=== PATIENT | female | born 1985 | race Caucasian/White ===

== ENCOUNTER 2018-09-05 17:39 | Emergency (ER) | payer BC, OTHER ==
[2018-09-05 17:48] VITALS: BMI 28.3
[2018-09-05] MEDS ORDERED: METOCLOPRAMIDE HCL INJECTION 10 MG/2 ML VIAL IVPUSH ONE (17:49)
[2018-09-05] MEDS ORDERED: SODIUM CHLORIDE 1,000 ML IV ONE (17:49)
--- NOTE | 2018-09-05 17:55 | PDOC ---
History of Present Illness - General Chief Complaint: Migraine Headache Stated Complaint: MIGRAINE HEADACHE Time Seen by Provider: 09/05/18 17:40 History Source: Patient Exam Limitations: No Limitations - History of Present Illness Initial Comments: 09/05/18 17:50 32y F hx of migraines (on daily nadolol, and takes relpax for breakthrough pain ) presents with [facility]. Pt notes her migraines have been relatively well controlled, (needs to gake relpax approx 1 x monthly) - however the past week, she has had 3 migraine headaches, which resolved prior to using the triptan - however around 2am, hr headache came back as a R sided pounding associated with photophobia/phonophobia, nausea/vomiting consistent with he rmigranes - she tookher relpex lastnight and again this afternoon without significant improvement. pt denies any blurry vision, double vision, numbness/tingling/ ewakness, cp, sob, fever/chills, abd pain, dairrhea, dysuria. Neurologist: Dr. Munoz Past History - Past Medical History Allergies/Adverse Reactions: Allergies Allergy/AdvReac Type Severity Reaction Status Date / Time cefaclor [From [facility]] Allergy Intermediate Rash Verified 09/05/18 17:41 Penicillins Allergy Intermediate Rash Verified 09/05/18 17:41 Home Medications: Ambulatory Orders Nadolol 40 mg PO HS 12/11/14 Norethindrone-E.estradiol-Iron [Minastrin 24 Fe Chewable Tab] 1 each PO DAILY Alprazolam [Xanax] 0.5 mg PO PRN 09/05/18 COPD: No Kidney Stones: Yes Other medical history: MIGRAINE - Immunization History Immunization Up to Date: Yes - Suicide/Smoking/Psychosocial Hx Smoking Status: Yes Smoking History: Current every day smoker Have you smoked in the past 12 months: No Number of Cigarettes Smoked Daily: 2 Information on smoking cessation initiated: No 'Breaking Loose' booklet given: 12/11/14 Hx Alcohol Use: Yes (SOCIAL) Drug/Substance Use Hx: No Substance Use Type: None Review of Systems - Review of Systems Able to Perform ROS?: Yes Comments:: 09/05/18 17:55 Constitutional - no reported Fever, Chills, HEENT: no reported vision changes, sore throat Respiratory: no reported cough, sob, hemoptysis Cardiac: no reported chest pain, palpitations, light headedness, leg swelling Abd/GI: no reported abd pain, nausea, vomiting, blood per rectum, melena, diarrhea : no reported dysuria, frequency, discharge Musculskelatal - no reported back pain, joint swelling skin - no reported bruising, erythema, rash neurological: +headache, no reported numbness, focal weakness, tingling, ataxia , hematologic: no reported easy bruising, easy bleeding *Physical Exam - Vital Signs Last Vital Signs Temp Pulse Resp BP Pulse Ox 98.4 F 52 L 16 117/66 100 09/05/18 17:39 09/05/18 17:39 09/05/18 17:39 09/05/18 17:39 09/05/18 17:39 - Physical Exam Comments: 09/05/18 17:55 GENERAL: The patient is awake, alert, and fully oriented, Nontoxic - in no acute distress. HEAD: Normocephalic, atraumatic. EYES: extraocular movements intact, sclera anicteric, conjunctiva clear. ENT: Normal voice, Moist mucous membranes. NECK: Normal range of motion, supple LUNGS: Breath sounds equal, clear to auscultation bilaterally. No wheezes, no rhonchi, no rales. HEART: Regular rate and rhythm, normal S1 and S2 without murmur, rub or gallop. ABDOMEN: Soft, nontender, normoactive bowel sounds. No guarding, no rebound. . No CVA tenderness EXTREMITIES: Normal range of motion, no edema. No clubbing or cyanosis. No cords, erythema, or tenderness. NEUROLOGICAL: No facial assymetry, Normal speech, motor exam grossly symmetric and intact, sensation symmetric in upper and lower PSYCH: Normal mood, normal affect. SKIN: Warm, Dry, normal turgor, Medical Decision Making - Medical Decision Making 09/05/18 17:56 Suspect migraine headaches will give Reglan, Toradol, fluids for hydration UHCG negative no red flags/neuro sx or findings 09/05/18 18:42 pt feelnig significantly improved on reasesssment with complete resolution of her headache will dc with supportive care I discussed the physical exam findings, ancillary test results and final diagnoses with the patient. I answered all of the patient's questions. The patient was satisfied with the care received and felt comfortable with the discharge plan and treatment plan. The patient will call their primary care physician within 24 hours to arrange follow-up and will return to the Emergency Department with any new, persistent or worsening symptoms. *DC/Admit/Observation/Transfer Diagnosis at time of Disposition: Migraine Qualifiers: Migraine type: with aura Status migrainosus presence: without status migrainosus Intractability: not intractable Qualified Code(s): G43.109 - Migraine with aura, not intractable, without status migrainosus - Discharge Dispostion Disposition: HOME Condition at time of disposition: Improved Decision to Admit order: No - Referrals Referrals: Sami Munoz MD [Staff Physician] - - Patient Instructions Printed Discharge Instructions: DI for Migraine Additional Instructions: Return to the emergency department immediately with ANY new, persistent or worsening symptoms including worsening headache, vision changes, numbness/ tingling/weakness, persistent nausea and vomiting or any other concerns. Make sure you are getting adaqute sleep and hydration. You MUST call and follow up with your doctor n 4-5 days for further evaluation of your symptoms. Your emergency department visit is not complete without a followup with your doctor for reevaluation. Results were discussed with you. Please make sure your doctor reviews the results of your emergency evaluation. - Post Discharge Activity
[2018-09-05] MEDS ORDERED: KETOROLAC TROMETHAMINE 30 MG/1 ML VIAL IVPUSH ONE (17:56)
[2018-09-05] MEDS ORDERED: KETOROLAC TROMETHAMINE 30 MG/1 ML VIAL ONE (18:06)
[2018-09-05] MEDS ORDERED: METOCLOPRAMIDE HCL INJECTION 10 MG/2 ML VIAL ONE (18:07)
[2018-09-05 18:55] VITALS: BP 102/63; PULSE 79; TEMP 97.9
== END 2018-09-05 18:57 | disposition home or self-care (01) ==
LOC: FER 17:39
PROC: 3E0333Z Introduction of Anti-inflammatory into Peripheral Vein, Percutaneous Approach (ICD-10-PCS; principal; 2018-09-05)
PROC: 3E033GC Introduction of Other Therapeutic Substance into Peripheral Vein, Percutaneous Approach (ICD-10-PCS; 2018-09-05)
PROC: 3E0337Z Introduction of Electrolytic and Water Balance Substance into Peripheral Vein, Percutaneous Approach (ICD-10-PCS; 2018-09-05)
DX: G43.109 Migraine with aura, not intractable, without status migrainosus (principal); F17.210 Nicotine dependence, cigarettes, uncomplicated
CPT/HCPCS: 81025; 99281-25; J7030

== ENCOUNTER 2019-01-20 16:54 | Emergency (ER) | payer BC ==
[2019-01-20 17:04] VITALS: BP 114/72; PULSE 66; TEMP 97.8; BMI 29.7
[2019-01-20] MEDS ORDERED: METOCLOPRAMIDE HCL INJECTION 10 MG/2 ML VIAL IVPUSH ONE (17:21)
[2019-01-20] MEDS ORDERED: SODIUM CHLORIDE 1,000 ML IV ONE (17:21)
[2019-01-20] MEDS ORDERED: KETOROLAC TROMETHAMINE 30 MG/1 ML VIAL IVPUSH ONE (17:21)
[2019-01-20] MEDS ORDERED: METOCLOPRAMIDE HCL INJECTION 10 MG/2 ML VIAL ONE (17:29)
[2019-01-20] MEDS ORDERED: KETOROLAC TROMETHAMINE 30 MG/1 ML VIAL ONE (17:29)
--- NOTE | 2019-01-20 18:11 | PDOC ---
Documentation entered by Lucinda Buchanan SCRIBE, acting as scribe for Adolph Foster MD. Adolph Foster MD: This documentation has been prepared by the Chanel fitzgerald Adrianna, SCRIBE, under my direction and personally reviewed by me in its entirety. I confirm that the documentation accurately reflects all work, treatment, procedures, and medical decision making performed by me. History of Present Illness - General Chief Complaint: Headache Stated Complaint: MIGRAINE HEADACHE Time Seen by Provider: 01/20/19 17:08 History Source: Patient Exam Limitations: No Limitations - History of Present Illness Initial Comments: The patient is a 33 year old female, with a significant PMH of migraines (on daily nadolol, and takes relpax for breakthrough pain), kidney stones, and anxiety, who presents to the ED for evaluation of migraine for one day. Patient notes her migraines have been typically well controlled (seen in the ER once a year), but they have become progressively worse recently (seen 2 times in the past 3 months). Patient notes that she began experiencing a migraine earlier this morning, that has progressively worsened as the day progressed. Patient describes her migraine as pounding, constant, and felt diffusely. She endorses associated photophobia, dizziness, nausea, NBNB vomit, and dehydration. Patient notes she was asymptomatic yesterday, but has returned to work that causes her stress especially yesterday. She took her relpax without significant improvement. Denies blurry vision, double vision, numbness, tingling, weakness, chest pain, SOB, fever, chills, neck pain or stiffness, abdominal pain, diarrhea, or dysuria. Allergies: Cefaclor, penicillins Surgical History: None reported Social History: Current smoker (2 cigarettes per day). Social EtOH use. Denies illicit drug use. PCP: Dr. Gee Neurologist: Dr. Munoz Past History - Past Medical History Allergies/Adverse Reactions: Allergies Allergy/AdvReac Type Severity Reaction Status Date / Time [place] [[place] [facility] Allergy Intermediate Rash Verified 01/20/19 16:55 Penicillins Allergy Intermediate Rash Verified 01/20/19 16:55 Home Medications: Ambulatory Orders Nadolol 30 mg PO HS 12/11/14 Norethindrone-E.estradiol-Iron [Minastrin 24 Fe Chewable Tab] 1 each PO DAILY 04 /29/16 Alprazolam [Xanax] 0.5 mg PO PRN 09/05/18 Eletriptan Hydrobromide [Relpax -] 40 mg PO ASDIR 01/20/19 COPD: No Kidney Stones: Yes Psychiatric Problems: Yes (ANXIETY) Other medical history: MIGRAINE HEADACHES - Immunization History Immunization Up to Date: Yes - Suicide/Smoking/Psychosocial Hx Smoking Status: Yes Smoking History: Current some day smoker Have you smoked in the past 12 months: Yes Number of Cigarettes Smoked Daily: 2 Information on smoking cessation initiated: Yes 'Breaking Loose' booklet given: 12/11/14 Hx Alcohol Use: (social) Drug/Substance Use Hx: No Substance Use Type: None Review of Systems - Review of Systems Able to Perform ROS?: Yes Comments:: Constitutional - +dehydrated. Pt denies Fever, Chills, weakness, HEENT: denies vision changes, sore throat Respiratory: Denies cough, sob, hemoptysis Cardiac: denies chest pain, palpitations, light headedness, leg swelling Abd/GI: +nausea. +NBNB vomit. denies abd pain, blood per rectum, melena, diarrhea : denies dysuria, frequency, discharge Musculoskeletal - denies back pain, joint swelling skin - denies bruising, erythema, rash neurological: +diffuse, pounding migraine. +photophobia. +dizziness. denies numbness, focal weakness, tingling, ataxia, weakness hematologic: denies anemia, easy bruising, easy bleeding *Physical Exam - Vital Signs Last Vital Signs Temp Pulse Resp BP Pulse Ox 97.8 F 66 18 114/72 99 01/20/19 16:54 01/20/19 16:54 01/20/19 16:54 01/20/19 16:54 01/20/19 16:54 - Physical Exam Comments: GENERAL: The patient is awake, alert, and fully oriented, Nontoxic - in no acute distress. HEAD: Normocephalic, atraumatic. EYES: extraocular movements intact, sclera anicteric, conjunctiva clear. pupils 3mm and symmetrically reactive to light ENT: Normal voice, Moist mucous membranes. NECK: Normal range of motion, supple without lymphadenopathy, JVD, or masses. LUNGS: Breath sounds equal, clear to auscultation bilaterally. No wheezes, no crackles, no rales. HEART: Regular rate and rhythm, normal S1 and S2 without murmur, rub or gallop. ABDOMEN: Soft, nontender, normoactive bowel sounds. No guarding, no rebound. No masses. EXTREMITIES: Normal range of motion, no edema. No clubbing or cyanosis. No cords, erythema, or tenderness. NEUROLOGICAL: No facial asymmetry, Normal speech, normal gait. moving all 4 ext spontneously and symmetrically PSYCH: Normal mood, normal affect. SKIN: Warm, Dry, normal turgor, no rashes or lesions noted. ED Treatment Course - Medications Given in the ED: ED Medications Discontinued Medications Generic Name Dose Route Start Last Admin Trade Name Freq PRN Reason Stop Dose Admin Metoclopramide HCl 10 mg 01/20/19 17:21 01/20/19 17:34 Reglan Injection - IVPUSH 01/20/19 17:22 10 mg ONCE ONE Administration Medical Decision Making - Medical Decision Making suspect migraine headache w dehdyration no red flags will give fluids, reglan, toradol 01/20/19 18:13 pt feeling improved after treatement will dc to fu with neurologist return precautions were discussed *DC/Admit/Observation/Transfer Diagnosis at time of Disposition: Migraine Qualifiers: Migraine type: other Status migrainosus presence: without status migrainosus Intractability: not intractable Qualified Code(s): G43.809 - Other migraine, not intractable, without status migrainosus - Discharge Dispostion Disposition: HOME Condition at time of disposition: Improved Decision to Admit order: No - Referrals Referrals: Yudelka Gee MD [Primary Care Provider] - - Patient Instructions Printed Discharge Instructions: DI for Migraine Additional Instructions: Return to the emergency department immediately with ANY new, persistent or worsening symptoms including worsening headache, vision changes, numbness/ tingling/weakness, persistent nausea and vomiting or any other concerns. Make sure you are getting adaqute sleep and hydration. You MUST call and follow up with your doctor tomorrow for further evaluation of your symptoms. Your emergency department visit is not complete without a followup with your doctor for reevaluation. Results were discussed with you. Please make sure your doctor reviews the results of your emergency evaluation. Print Language: SAMOAN - Post Discharge Activity
[2019-01-20 18:12] LABS: EPITHELIAL CELLS FEW /hpf
== END 2019-01-20 18:28 | disposition home or self-care (01) ==
LOC: FER 16:54 → SUPCPDRO 16:54 → FER 18:28
PROC: 3E0337Z Introduction of Electrolytic and Water Balance Substance into Peripheral Vein, Percutaneous Approach (ICD-10-PCS; principal; 2019-01-20)
PROC: 3E0333Z Introduction of Anti-inflammatory into Peripheral Vein, Percutaneous Approach (ICD-10-PCS; 2019-01-20)
PROC: 3E033GC Introduction of Other Therapeutic Substance into Peripheral Vein, Percutaneous Approach (ICD-10-PCS; 2019-01-20)
DX: G43.809 Other migraine, not intractable, without status migrainosus (principal); F41.9 Anxiety disorder, unspecified; F17.210 Nicotine dependence, cigarettes, uncomplicated; Z88.0 Allergy status to penicillin; Z88.8 Allergy status to other drugs, medicaments and biological substances; Z87.442 Personal history of urinary calculi
CPT/HCPCS: 81003; 81015; 84703; 99283-25; J7030

== ENCOUNTER 2020-09-21 16:29 | Emergency (ER) | payer BC, OTHER ==
[2020-09-21] MEDS ORDERED: ACETAMINOPHEN 1000 MG/100 ML VIAL (NON FORMULARY) IVPB ONE (16:35)
[2020-09-21] MEDS ORDERED: METOCLOPRAMIDE HCL INJECTION 10 MG/2 ML VIAL IVPUSH ONE (16:35)
[2020-09-21] MEDS ORDERED: SODIUM CHLORIDE 0.9% 1000 ML INFUS.BAG IV ONE (16:35)
[2020-09-21] MEDS ORDERED: ACETAMINOPHEN INJECTION 100 ML IVPB ONE (16:59)
[2020-09-21] MEDS ORDERED: METOCLOPRAMIDE HCL INJECTION 10 MG/2 ML VIAL ONE (16:59)
[2020-09-21 17:45] LABS: BASO % 0.9 % (0-2.0); HEMATOCRIT 39.9 % (32.4-45.2); HEMOGLOBIN 13.3 GM/dl (10.7-15.3); LYMPH % 18.7 % (8-40); MCH 30.6 pg (25.7-33.7); MCHC 33.3 g/dl (32.0-36.0); MEAN CELL VOLUME 91.9 fl (80-96); MEAN PLT VOLUME 9.4 fl (7.5-11.1); MONO % 7.5 % (3.8-10.2); NEUT % 71.9 % (42.8-82.8); PLATELET COUNT 215 K/MM3 (134-434); RBC 4.35 M/mm3 (3.60-5.2); RDW 12.1 % (11.6-15.6); WHITE BLOOD COUNT 11.3 K/mm3 (4.0-10.8)
[2020-09-21 17:46] VITALS: BP 107/67; PULSE 71; TEMP 99; BMI 32.9
[2020-09-21 17:47] LABS: HCG,QUALITATIVE URINE Negative
[2020-09-21 18:03] LABS: ALBUMIN 3.5 g/dl (3.4-5.0); BILIRUBIN,TOTAL 0.6 mg/dl (0.2-1); CALCIUM 8.6 mg/dl (8.5-10); CREATININE 0.6 mg/dl (0.55-1.3); TOT PROT 6.7 g/dl (6.4-8.2)
[2020-09-21] MEDS ORDERED: KETOROLAC TROMETHAMINE 30 MG/1 ML VIAL IVPUSH ONE (18:36)
== END 2020-09-21 18:43 | disposition home or self-care (01) ==
LOC: FER 16:29
PROC: 3E0333Z Introduction of Anti-inflammatory into Peripheral Vein, Percutaneous Approach (ICD-10-PCS; principal; 2020-09-21)
PROC: 3E0333Z Introduction of Anti-inflammatory into Peripheral Vein, Percutaneous Approach (ICD-10-PCS; 2020-09-21)
PROC: 3E033GC Introduction of Other Therapeutic Substance into Peripheral Vein, Percutaneous Approach (ICD-10-PCS; 2020-09-21)
DX: G43.909 Migraine, unspecified, not intractable, without status migrainosus (principal)
CPT/HCPCS: 36415; 80053; 81003; 81015; 84703; 85025; 99284-25; J0131

== ENCOUNTER 2021-07-10 04:47 | Day surgery (SDC) | payer BC, OTHER ==
[2021-07-06 14:01] VITALS: BMI 31.1
[~2021-07-10 04:47] MED LIST: BUPIVACAINE HCL/PF 0.5% (5MG/ML) 10 ML VIAL IJ ONE
[2021-07-10] MEDS ORDERED: BUPIVACAINE HCL/PF 0.5% (5MG/ML) 10 ML VIAL ONE (08:56)
[2021-07-10] MEDS ORDERED: CLINDAMYCIN PHOSPHATE 900 MG/6 ML VIAL IVPB ONE (09:00)
[2021-07-10] MEDS ORDERED: MIDAZOLAM HCL 2 MG/2 ML SINGLE DOSE VIAL ONE (09:10)
[2021-07-10] MEDS ORDERED: DEXAMETHASONE SOD PHOSPHATE 4 MG/1 ML VIAL ONE (09:11)
[2021-07-10] MEDS ORDERED: PROPOFOL 20 ML ONE ×3 (09:11→10:06)
[2021-07-10] MEDS ORDERED: CLINDAMYCIN PHOSPHATE 600 MG/4 ML VIAL ONE (09:11)
[2021-07-10] MEDS ORDERED: PROMETHAZINE HCL 25 MG/1 ML VIAL IVPUSH PRN (09:18)
[2021-07-10] MEDS ORDERED: ONDANSETRON 4 MG/2 ML VIAL IVPUSH PRN (09:18)
[2021-07-10] MEDS ORDERED: BUPIVACAINE HCL/PF 0.5% (5MG/ML) 10 ML VIAL IJ ONE (09:26)
[2021-07-10] MEDS ORDERED: LACTATED RINGERS SOLUTION 1,000 ML IV SCH (09:30)
[2021-07-10] MEDS ORDERED: ACETAMINOPHEN 1000 MG/100 ML BAG IVPB ONE ×2 (11:14→11:15)
[2021-07-10 11:53] VITALS: PULSE 63
[2021-07-10 14:25] VITALS: BP 106/68; TEMP 97.2
== END 2021-07-10 13:30 | disposition home or self-care (01) ==
LOC: JASU-SURG 04:47
PROVIDERS: ATTEND Orthopaedic Surgery
PROC: 0SBD4ZZ Excision of Left Knee Joint, Percutaneous Endoscopic Approach (ICD-10-PCS; 2021-07-10)
PROC: 0SBD4ZZ Excision of Left Knee Joint, Percutaneous Endoscopic Approach (ICD-10-PCS; 2021-07-10)
PROC: 0SQD4ZZ Repair Left Knee Joint, Percutaneous Endoscopic Approach (ICD-10-PCS; principal; 2021-07-10 09:00)
DX: M24.10 Other articular cartilage disorders, unspecified site (principal); M93.262 Osteochondritis dissecans, left knee; M65.9 Synovitis and tenosynovitis, unspecified
CPT/HCPCS: 81025; 93005; 93010; 94760; 97116-GP

== ENCOUNTER 2022-04-11 11:45 | Emergency (ER) | payer BC, OTHER ==
[2022-04-11] MEDS ORDERED: IBUPROFEN 400 MG TABLET (FP) PO ONE ×2 (11:51→12:02)
[2022-04-11 11:54] VITALS: BP 121/80; PULSE 87; RESP 16; TEMP 98.7; BMI 32.8
[2022-04-11] MEDS ORDERED: METOCLOPRAMIDE HCL INJECTION 10 MG/2 ML VIAL IVPUSH ONE (14:59)
[2022-04-11] MEDS ORDERED: METOCLOPRAMIDE HCL INJECTION 10 MG/2 ML VIAL ONE (15:16)
== END 2022-04-11 15:40 | disposition home or self-care (01) ==
LOC: FER 11:45
PROC: 3E033GC Introduction of Other Therapeutic Substance into Peripheral Vein, Percutaneous Approach (ICD-10-PCS; principal; 2022-04-11)
DX: G43.909 Migraine, unspecified, not intractable, without status migrainosus (principal)
CPT/HCPCS: 99284-25

== ENCOUNTER 2023-05-23 10:10 | Emergency (ER) | payer BC, OTHER ==
[2023-05-23 10:22] VITALS: BP 105/70; PULSE 94; RESP 18; TEMP 98.7; BMI 31.8
[2023-05-23] MEDS ORDERED: METOCLOPRAMIDE HCL INJECTION 10 MG/2 ML VIAL IVPB ONE (10:37)
[2023-05-23] MEDS ORDERED: SODIUM CHLORIDE 0.9% 500 ML INFUS.BAG IV ONE (10:37)
[2023-05-23] MEDS ORDERED: METOCLOPRAMIDE HCL INJECTION 10 MG/2 ML VIAL ONE (11:02)
[2023-05-23 11:38] LABS: HCG,QUALITATIVE URINE Positive
[2023-05-23 12:02] LABS: AMORP PHOS MANY /hpf (NONE SEEN)
== END 2023-05-23 12:40 | disposition home or self-care (01) ==
LOC: FER 10:10
PROC: 3E033GC Introduction of Other Therapeutic Substance into Peripheral Vein, Percutaneous Approach (ICD-10-PCS; principal; 2023-05-23)
DX: O99.351 Diseases of the nervous system complicating pregnancy, first trimester (principal); G43.909 Migraine, unspecified, not intractable, without status migrainosus; O21.9 Vomiting of pregnancy, unspecified; Z3A.01 Less than 8 weeks gestation of pregnancy
CPT/HCPCS: 81003; 81015; 84703; 87086; 99284-25